=== PATIENT | female | born 1970 | race Caucasian/White ===

== ENCOUNTER 2022-01-01 13:37 | Outpatient (CLI) | payer BC, SELFPAY ==
--- NOTE | 2022-01-01 10:00 | DI.RAD_ITS ---
Exam(s) XR ELBOW LT COMPLETE EXAM: XR ELBOW LT COMPLETE CLINICAL HISTORY: fall, two weeks ago r/o fx M25.522. TECHNIQUE: 2D digital imaging was performed. Three views. COMPARISON: No exams were available for comparison FINDINGS: BONES: Minimally impacted fracture at the radial neck. No separation at the articular surface. No b mireya destructive lesion is seen. JOINTS: The elbow is normally aligned. A small joint effusion is seen. SOFT TISSUE: Normal. IMPRESSION: Nondisplaced radial head fracture. DATA REPOSITORY: RADIATION DOSE DELIVERED:
--- NOTE | 2022-01-01 10:00 | DI.RAD_ITS ---
Exam(s) XR SHOULDER LT COMPLETE 2+V EXAM: XR SHOULDER LT COMPLETE 2+V CLINICAL HISTORY: fall, left shoulder and elbow pain M25.512. TECHNIQUE: 2D digital imaging was performed. Three views. COMPARISON: No exams were available for comparison FINDINGS: BONES: No acute fracture is present. No bony destructive lesion is seen. JOINTS: No dislocation present. SOFT TISSUE: Normal. IMPRESSION: Unremarkable radiographs of the left shoulder. DATA REPOSITORY: RADIATION DOSE DELIVERED:
--- OUTSIDE RECORDS SUMMARY | 2022-01-01 13:44 | XMS_ITS ---
:1970 Author Care Team Providers Name Role Phone JENNIFER MOROCHO Primary Care Provider [phone] Allergies Code Code System Name Reaction Severity Status Onset NKDA ? Notes: pollens, grass, hay Medications Name Status Start Date Stop Date ? ? Advair Diskus 250 mcg-50 mcg/dose powder for inhalation Complete d 10/21/2013 10/21/2013 1 inhalation: daily amoxicillin 500 mg capsule Completed ? 12/07 TAKE 1 CAPSULE BY MOUTH THREE TIMES DAILY UNTIL FINISHED amoxicillin 875 mg tablet Completed 03/23/20102010 1 (one) Tablet: Twice daily amoxicillin 875 mg-potassium clavulanate 125 mg tablet Completed ? 12/07/2020 TAKE 1 TABLET BY MOUTH TWICE DAILY UNTIL FINISHED carvedilol 25 mg tablet Completed 04/28/2015 06/09/20 15 1 (one) Tablet: bid - twice daily cholecalciferol (vitamin D3) 50 mcg (2,000 unit) capsule Complet ed ? 12/05/2021 Take 2 capsules every day by oral route for 90 days. doxycycline hyclate 100 mg Completed ? 11/04 tablet Flovent HFA 110 mcg/actuation aerosol inhaler Active ? Not available Inhale 1 puff twice a day by inhalation route. Flovent HFA 220 mcg/actuation aerosol inhaler Completed 10/16/2013 2-3 puff(s): two times daily fluticasone propionate 50 Completed ? 2020 mcg/actuation nasal spray,suspension lisinopril 5 mg tablet Active ? Not avail able TK 1 T PO D losartan 100 mg tablet Active ? Not avail able Take 1 tablet every day by oral route for 90 days. losartan 25 mg tablet Completed ? 03/21/2021 metoprolol succinate ER 100 mg tablet,extended release 24 hr Act anna ? Not available TAKE 1 TABLET BY MOUTH DAILY metoprolol succinate ER 50 mg Completed ? tablet,extended release 24 hr montelukast 10 mg tablet Completed ? 020 Take 1 tablet every day by oral route for 90 days. ProAir HFA 90 mcg/actuation aerosol inhaler Active ? Not available Inhale 2 puffs every 4 hours by inhalation route as needed. Terazol 3 0.8 % vaginal cream Completed 03/23/2010 1 (one) Cream: vaginally at night Toprol XL 50 mg tablet,extended release Completed ? 12/31/2019 Take 1 tablet every day by oral route. Tudorza Pressair 400 mcg/actuation breath activated Completed 12/16/2012 12/16/2012 1 inhalation: two times daily Problems Name Status Onset Date Source ? Cardiomyopathy Active 03/23/2019 ? Menorrhagia Active 09/12/2020 ? Paresthesia of Lower Extremity Active 08/09/2021 ? Hyperlipidemia Active ? History Obstructive Sleep Apnea Syndrome Active ? History Otitis Media Unknown ? History Otogenic Otalgia Unknown ? History Acute Sinusitis Unknown ? History Allergic Rhinitis Unknown ? History Asthma Active ? 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 History Genuine Stress Incontinence Active ? Hist ory Lack of Energy Active ? History Palpitations Active ? History Heart Murmur Active ? History Cough Unknown ? History Dysuria Unknown ? History Screening for Cardiovascular System Active ? History Disease Specialized Medical Examination Unknown ? History Procedures Date Name Performed by ? 07/19/2006 Tubal Ligation Information not avai lable ? Appendectomy Information not avai lable Notes: 197511/04/2019 MAMMO, Screening, Tomosynthesis, [facility] Radiology (Internal) Bilateral [address] [place] [address] (Work Place) 12/20/2020 US, Pelvis, Transabdominal + [facility] Radiology (Internal) Transvaginal [address] [place] [address] (Work Place) Results Lab Results Date Name Specimen Result Interpretation Description Value Range Status Address ? 03/21/2021 Urinalysis, ? Color Yellow ? ? P _nc Primary Dipstick, Care Reflex Micro [place]: [address] [place], [place] ? ? ? Appearance Clear ? ? P_nc Primary Care [place]: [address], [place] ? ? ? Glucose Normal ? ? P_nc Marla josé miguel Care [place]: [address], [place] ? ? ? Bilirubin Negative ? ? P_nc Primary Care [place]: [address], [place] ? ? ? Ketones Negative ? ? P_nc P rimary Care [place]: [address], [place] ? ? ? Specific 1.030 ? ? P_nc Pr imary [place] Care [place]: [address], [place] ? ? ? Blood Moderate ? ? P_nc Marla josé miguel Care [place]: [address], [place] ? ? ? Ph 5.5 ? ? P_nc Prima ry Care [place]: [address], [place] ? ? ? Protein Negative ? ? P_nc P rimary Care [place]: [address], [place] ? ? ? Urobilinogen 0.2 ? ? P_n c Primary Care [place]: [address], [place] ? ? ? Nitrite negative ? ? P_nc P rimary Care [place]: [address], [place] ? ? ? Leukocyte Negative ? ? P_nc Primary Esterase Care [place]: [address], [place] 11/04/2019 CBC W/ Auto BLD ? Wbc 7.1 10*3/uL 5.0 [facility] Diff -10 Hospital L ab .0 (Internal) : [address], 3/u Abhijit L ? ? BLD ? Rbc 4.71 10*6/uL 4.1 Final [facility] Country 0-5 Hospital L ab .30 (Internal) : [address] 10* [address], 6/u Abhijit L ? ? BLD ? Hgb 13.8 g/dL 12. Final [facility] ountry 0-1 Hospital L ab 6.0 (Internal) : 189 g/[address] ? ? BLD ? Hct 42.9 % 37. Final [facility] try 0-4 Hospital L ab 7.0 (Internal) : 189 % [address] ? ? BLD ? Mcv 91.1 fL 80. Final [facility] ntry 0-9 Hospital L ab 6.0 (Internal) : [address] [place] ? ? BLD ? Mch 29.3 pg 26. Final [facility] ntry 0-3 Hospital L ab 2.0 (Internal) : [address] Abhijit ? ? BLD ? Mchc 32.2 g/dL 31. Final [facility] ountry 0-3 Hospital L ab 5.0 (Internal) : 189 g/d [address], L Abhijit ? ? BLD ? Rdw 12.8 % 11. Final [facility] try 5-1 Hospital L ab 4.5 (Internal) : [address], Abhijit ? ? BLD ? Plt 248 10*3/uL 130 Final [place] -45 Hospital L ab 0 (Internal) : [address], 3/u T[place] L ? ? BLD ? Anc 4.01 10*3/uL ? Final [facility] Hospital L ab (Internal) : [address] [place] ? ? BLD ? Neutro 56.5 % 40. Final [facility] ntry 0-7 Hospital L ab 5.0 (Internal) : [address], [place] ? ? BLD ? Lymph 33.2 % 20. Final [facility] try 0-5 Hospital L ab 0.0 (Internal) : 189 % [address] [place] ? ? BLD ? [place] 7.6 % 2.0 Final [facility] try -10 Hospital L ab .0 (Internal) : [address] % [address] Abhijit ? ? BLD ? Eos 1.7 % 1.0 Final [facility] try -6. Hospital L ab 0 % (Internal) : [address] Abhijit ? ? BLD ? Baso 0.6 % 0.0 Final [facility] try -1. Hospital L ab 0 % (Internal) : [address] Abhijit ? ? BLD ? Ig 0.4 % 0.0 Final [facility] try -0. Hospital L ab 9 % (Internal) : [address] Abhijit 11/04/2019 CMP, Serum or S ? g/r 96 mg/dL 74- Susan l [facility] Plasma 106 Hospital L ab mg/ (Internal) : [address] [place] ? ? S ? Bun 16 mg/dL 7-1 Final [facility] 7 Hospital L ab mg/ (Internal) : [address], [place] ? ? S ? Crea 0.80 mg/dL 0.[address] [facility] 2-1 Hospital L ab .04 (Internal) : 189 mg/ [address], dL [place] ? ? S ? Ca 8.9 mg/dL 8.4 Final [facility] -10 Hospital L ab .2 (Internal) : 189 mg/ [address], dL Ahbijit ? ? S ? Na 138 mmol/L [address] [facility] -14 Hospital L ab 5 (Internal) : [address], l/L [place] ? ? S ? K 4.1 mmol/L 3.[address] [facility] -5. Hospital L ab 1 (Internal) : [address], l/L [place] ? ? S ? Cl 105 mmol/L 98- Final [facility] 107 Hospital L ab mmo (Internal) : 189 l/L [address], [place] ? ? S ? Tco2 24.0 mmol/L 22. Final [facility] 0-3 Hospital L ab 0.0 (Internal) : [address], l/L Abhijit ? ? S ? Tp 6.9 g/dL 6.3 Final [facility] -8. Hospital L ab 2 (Internal) : 189 g/d [address], L [place] ? ? S ? Alb 3.9 g/dL 3.5 [facility] -5. Hospital L ab 0 (Internal) : 189 g/d [address], L [place] ? ? S ? Tbil 0.5 mg/dL 0.2 Final [facility] -1. Hospital L ab 3 (Internal) : 189 mg/ [address], dL [place] ? ? S ? Alp 54 U/L 50- Final [facility] try 136 Hospital L ab U/L (Internal) : [address], Abhijit ? ? S ? Alt (Sgpt) 19 U/L 9-[address] [facility] 2 Hospital L ab U/L (Internal) : [address], [place] ? ? S ? Ast (Sgot) 24 U/L 14- Final [facility] 36 Hospital L ab U/L (Internal) : [address] Abhijit Alegre 11/04/2019 TSH, Serum or S ? Tsh 1.[address] [facility] Plasma u[IU]/mL 7-4 Hospital Lab .68 (Internal) : 189 u[I [address] U]/ Abhijit mL 11/04/2019 ESR BLD ? Esr 0 mm/h 0-[address] [facility] (Erythrocyte 0 Hosp ital Lab Sedimentation mm/ (In ternal): 189 Rate), Blood h Prou ty Abhijit Alegre 11/04/2019 Vitamin D, S ? 25-Hydroxy <4.0 NG/mL ? Final [facility] 25-Hydroxy, D2 Hospi kajal Lab Total, Serum (Int ernal): [address] Abhijit Alegre ? ? S ? 25-Hydroxy 14 NG/mL ? Final [facility] D3 Hospital L ab (Internal) : [address] Abhijit Alegre ? ? S Low 25-Hydroxy D 14 NG/mL ? Final [facility] Country Total Hospital L ab (Internal) : [address] Abhijit Alegre 11/04/2019 Pap Test, MISC ? Hpv see report ? Final [facility] Thinprep, Hospita l Lab Cervical (Interna l): [address] Abhijit Alegre ? ? MISC ? Pap see report ? Final [facility] Hospital L ab (Internal) : [address] Abhijit Alegre ? ? MISC ? Report (see below) ? Final [facility] Hospital L ab (Internal) : [address] Abhijit Alegre ? Venipuncture ? Location Right ? ? P _nc Primary Antecubital Care [place]: [address], [place] ? ? ? Needle 21g ? ? P_nc Prim brynn Vacutainer Care [place]: [address], [place] ? ? ? Number of 1 ? ? P_nc P rimary Attempts Care [place]: [address], [place] ? ? ? Successful Yes ? ? P_nc Primary Care [place]: [address], [place] ? ? ? Dressing Pressure ? ? P_nc Primary Band-aid Care Applied [place]: [address], [place] ? ? ? Initials kk ? ? P_nc Pr imary Care [place]: [address], [place] ? Urinalysis, ? Color Yellow ? ? P_nc Primary Dipstick, Care Reflex Micro [place]: [address], [place] ? ? ? Appearance Clear ? ? P_nc Primary Care [place]: [address], [place] ? ? ? Glucose Normal ? ? P_nc Marla josé miguel Care [place]: [address], [place] ? ? ? Bilirubin Negative ? ? P_nc Primary Care [place]: [address], [place] ? ? ? Ketones Negative ? ? P_nc P rimary Care [place]: [address], [place] ? ? ? Specific 1.030 ? ? P_nc Pr imary [place] Care [place]: [address], [place] ? ? ? Blood Trace ? ? P_nc Prima ry Care [place]: [address], [place] ? ? ? Ph 6.0 ? ? P_nc Prima ry Care [place]: [address], [place] ? ? ? Protein Trace ? ? P_nc Marla josé miguel Care [place]: [address], [place] ? ? ? Urobilinogen 0.2 ? ? P_n c Primary Care [place]: [address], [place] ? ? ? Nitrite negative ? ? P_nc P rimary Care [place]: [address], [place] ? ? ? Leukocyte Negative ? ? P_nc Primary Esterase Care [place]: [address] Past Encounters 12/05/2021 Paresthesia of Lower Extremity; Neuropat hy Jennifer Morocho PA-C: [address] [facility] [place] [address], Ph. 08/09/2021 Paresthesia of Lower Extremity Jennifer Morocho PA-C: [address] [facility] [place] [address], Ph. 03/21/2021 Adult Health Examination; Hypertensive D isorder MARK JuarezC: [address] [place] [address], Ph. 12/20/2020 Menorrhagia Lottie Medina, [facility]: [address] [place] [address], Ph. 09/12/2020 Cardiomyopathy; Menorrhagia MARK JuarezC: [address] [place] [address], Ph. Social History Tobacco Smoking Status Never Smoker Vaccine List Vaccine Type COVID-19, mRNA, LNP-S, PF, 100 mcg/0.5 m L dose (Moderna) 01/02/2021 01/30/2021 influenza, seasonal, injectable, preserv ative free 07/27/2011?0.5 mL rubella Td (adult), adsorbed 11/04/2019 Tdap 08/01/2008 Plan of Care Reminders Provider Appointments None ? ? recorded. Lab None ? ? recorded. Referral None ? ? recorded. Procedures None ? ? recorded. Surgeries None ? ? recorded. Imaging None ? ? recorded. Vitals 08/09/2021 03:00PM Follow Up 20 Weight Blood Pressure 119.01 kg 124/78 mm[Hg] 03/21/2021 08:40AM CPE 40 Weight Blood Pressure 119.41 kg 148/88 mm[Hg] 12/20/2020 01:00PM New Patient 30 Weight Blood Pressure 119.75 kg 144/86 mm[Hg] 09/12/2020 02:40PM Follow Up 40 Weight Blood Pressure 115.21 kg 140/98 mm[Hg] 11/04/2019 09:00AM CPE 40 Weight 112.94 kg 05/04/2019 04:00PM Follow Up 20 Weight Blood Pressure 111.58 kg 120/80 mm[Hg] 03/02/2019 11:00AM Same Day 20 Weight Blood Pressure 112.04 kg 120/80 mm[Hg] 10/21/2013 Height Weight Blood Pressure 172.72 cm 111.58 kg 118/72 mm[Hg] 12/16/2012 Height Weight Blood Pressure 172.72 cm 108.86 kg 120/76 mm[Hg] 10/15/2012 Blood Pressure 124/80 mm[Hg] 10/07/2012 Height Weight Blood Pressure 172.72 cm 108.86 kg 118/84 mm[Hg] 07/15/2012 Weight Blood Pressure 107.5 kg 108/60 mm[Hg] 10/26/2011 Height Weight Blood Pressure 172.72 cm 112.94 kg 132/84 mm[Hg] 10/17/2011 Height Weight Blood Pressure 172.72 cm 112.94 kg 120/60 mm[Hg] 09/18/2011 Height Weight Blood Pressure 170.18 cm 112.49 kg 118/72 mm[Hg] 07/27/2011 Height Weight Blood Pressure 170.18 cm 112.49 kg 118/62 mm[Hg] 06/08/2011 Height Weight Blood Pressure 172.72 cm 111.13 kg 138/80 mm[Hg] 12/01/2010 Weight Blood Pressure 111.81 kg 120/82 mm[Hg] 05/12/2010 Weight Blood Pressure 111.58 kg 118/78 mm[Hg] 03/23/2010 Weight Blood Pressure 113.85 kg 130/80 mm[Hg] 02/23/2010 Weight Blood Pressure 113.85 kg 114/72 mm[Hg] 08/19/2006 Weight Blood Pressure 114.31 kg 122/74 mm[Hg] 07/15/2006 Height Weight Blood Pressure 172.72 cm 113.85 kg 110/70 mm[Hg] 03/21/2006 Height Weight Blood Pressure 172.72 cm 109.77 kg 110/74 mm[Hg] 01/07/2006 Weight Blood Pressure 108.41 kg 106/60 mm[Hg] 10/22/2005 Weight Blood Pressure 109.77 kg 122/78 mm[Hg] 02/27/2005 Height Weight Blood Pressure 172.72 cm 104.33 kg 118/72 mm[Hg] 10/31/2004 Blood Pressure 124/80 mm[Hg]
--- OUTSIDE RECORDS SUMMARY | 2022-01-01 13:44 | XMS_ITS | Encounter Summary ---
:1970 Author Care Team Providers Name Role Phone Jennifer Morocho Primary Care Provider [phone] Reason for Visit Telehealth - Video/Zoom; Bilateral foot/ toe problem Assessment and Plan 1. Paresthesia of lower extremit y 12/05/2021 Uncontrolled. No ottoniel gnosis yet. [place] get [place] [facility] [place] visit. 08/09/2021 New problem. Started in January 22. Patient will get labs and see Neuro at [facility]. Patient has been vaccinated for COVID and doesn't think that she had any symptoms that might be COVID related in Spring 2020. 2. Neuropathy 12/05/2021 Uncontrolled. No ottoniel gnosis yet. We will get the labs from [facility] and have another visit. Discussion Note: None recorded.Patient educational handouts: No information available. Plan of Care Reminders Provider Appointments Cpe 40 03/22/2022 Jennifer Morocho, 9:00AM [facility] Lab None ? ? recorded. Referral None ? ? recorded. Procedures None ? ? recorded. Surgeries None ? ? recorded. Imaging None ? ? recorded. Medications Name Start Date ? ? Flovent HFA 110 mcg/actuation aerosol inhaler ? Inhale 1 puff twice a day by inhalation route. losartan 100 mg tablet ? Take 1 tablet every day by oral route for 90 days. metoprolol succinate ER 100 mg tablet,extended release 24 hr ? TAKE 1 TABLET BY MOUTH DAILY ProAir HFA 90 mcg/actuation aerosol inhaler ? Inhale 2 puffs every 4 hours by inhalation route as n eeded. Medications Administered None recorded. Vitals None recorded. Results Lab Results None recorded. Allergies Code Code System Name Reaction Severity Onset NKDA ? ? ? Notes: pollens, grass, hay Problems Name Status Onset Date Source ? Cardiomyopathy Active 03/23/2019 ? Menorrhagia Active 09/12/2020 ? Paresthesia of Lower Extremity Active 08/09/2021 ? Hyperlipidemia Active ? History Obstructive Sleep Apnea Syndrome Active ? History Asthma Active ? 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 History Genuine Stress Incontinence Active ? Hist ory Lack of Energy Active ? History Palpitations Active ? History Heart Murmur Active ? History Screening for Cardiovascular System Active ? History Disease Procedures Date Name Performed by ? 07/19/2006 Tubal Ligation Information not avai lable ? Appendectomy Information not avai lable Notes: 1973 Vaccine List Vaccine Type COVID-19, mRNA, LNP-S, PF, 100 mcg/0.5 m L dose (Moderna) 01/02/2021 01/30/2021 influenza, seasonal, injectable, preserv ative free 07/27/2011?0.5 mL rubella Td (adult), adsorbed 11/04/2019 Tdap 08/01/2008 Social History Tobacco Smoking Status Never Smoker Do you have smoke and carbon Y monoxide detectors in your home? What is your code status? 0 In the 14 days before symptom N onset, have you had close contact with a person who is under investigation for COVID-19 while that person was ill? What was the date of your most 12/05/2021 recent tobacco screening? Do you use any illicit or N recreational drugs? In the 14 days before symptom N onset, have you had close contact with a laboratory-confirmed COVID-19 while that case was ill? Do you have any pets? N Have you been to an area known N to be high risk for COVID-19? Current Method of Control Natural methods Notes: Tubal Are you passively exposed to N smoke? Do you or have you ever used N any other forms of tobacco or nicotine? What is your level of caffeine Occasional Notes: 1 cup of consumption? coffee daily Have you recently traveled N abroad? Are there any guns present in N your home? 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 Past Encounters 12/05/2021 Paresthesia of Lower Extremity; Neuropat hy Jennifer Morocho PA-C: [address] [place] [phone], Ph. History of Present Illness Note: <div>12/05/21: patient via Zoom for bilateral numbness in the toes and balls of her feet. for 10 months. Patient describes the pain as sudden, sharp, and shooting. The pain is non-radiating only localized in the feet.</div><div>Patient was referred to neurology [place] [facility] [place]. Kaiser Willson for evaluation of bilateral lower extremity paresthesias.</div><div>
</div><div>
</div><div>This visit was performed virtually usingsynchronous audio-visual connection via Zoom. As such, the physical examination is necessarily limited. The risks and benefits of the use of this alternative platform were discussed with the patient and or guardian and verbal consent was obtained. My assessment and plans are based on such examination.Further evaluation, including in-person examination, may be needed depending on the response to management or today's recommendation. </div><div>The patient is {{home* in the office}}. </div><div>The provider is {{home in the office*}}.</div><div>
</div><div>The patient has been positively identified and has consented to a video visit.</div><div>
</div><div>The time spent in counseling and coordination of care was </div><div>
</div> Review of Systems ? Comprehensive General Adult ROS Reported By: Patient Constitutional: Constitutional: no fever, no night sweats, no significant weight gain Eyes: Eyes: wears glasses/contact lenses ENMT: Ears: no difficulty hearing. Nose: no frequent nosebleeds. Mouth/Throat: no sore throat Cardiovascular: Cardiovascular: no chest morenita n, no arm pain on exertion, no shortness of breath when lyi ng down, no palpitations Respiratory: Respiratory: no cough Gastrointestinal: Gastrointestinal: no abdomin al pain, no nausea, no vomiting, no constipation Psychiatric: Psych: depression, anxiety Endocrine: Endocrine: fatigue Physical Exam ? Notes: <div>telehealth Psych: calm and upbeat</div>
== END 2022-01-01 13:57 ==
PROVIDERS: PCP Physician Assistant Medical; Visit Provider Physician Assistant
DX: M25.512 Pain in left shoulder (principal); M25.522 Pain in left elbow; M25.422 Effusion, left elbow; S52.125A Nondisplaced fracture of head of left radius, initial encounter for closed fracture; Z91.81 History of falling
CPT/HCPCS: 73030; 73080

== ENCOUNTER 2022-01-11 10:35 | Outpatient (CLI) | payer BC, SELFPAY ==
--- NOTE | 2022-01-11 08:30 | DI.RAD_ITS ---
Exam(s) XR ELBOW LT COMPLETE EXAM: XR ELBOW LT COMPLETE CLINICAL HISTORY: left elbow injury. TECHNIQUE: 2D digital imaging was performed. COMPARISON: CR XR ELBOW LT COMPLETE from 01/01/2022 FINDINGS: Four views Radial head fracture the lateral aspect radial head again noted. Fracture line still evident. Appea zoltan is stable. No further displacement. Capitellum unremarkable. No large joint effusion. No os seous lesions. IMPRESSION: Stable appearance radial head fracture site DATA REPOSITORY: RADIATION DOSE DELIVERED:
== END 2022-01-11 10:36 | disposition home or self-care (01) ==
LOC: DIORS 10:35
PROVIDERS: PCP Physician Assistant Medical; Referring Provider Physician Assistant Medical; Visit Provider Physician Assistant
DX: S52.125D Nondisplaced fracture of head of left radius, subsequent encounter for closed fracture with routine healing
CPT/HCPCS: 73080

== ENCOUNTER 2022-02-14 10:45 | Outpatient (CLI) | payer BC, SELFPAY ==
--- NOTE | 2022-02-14 10:30 | DI.RAD_ITS ---
Exam(s) XR ELBOW LT LIMITED EXAM: XR ELBOW LT LIMITED CLINICAL HISTORY: left elbow f/u. TECHNIQUE: 2D digital imaging was performed of the left elbow. Two images were obtained. AP and la teral views were obtained. COMPARISON: CR XR ELBOW LT COMPLETE from 01/11/2022 FINDINGS: BONES: There has been continued healing of the radial head fracture. There has been no change in ali gnment of the fracture. No new fractures identified. No bony destructive lesion is seen. JOINTS: The elbow is normally aligned. No joint effusion is seen. SOFT TISSUE: Normal. IMPRESSION: Healing left radial head fracture. DATA REPOSITORY: RADIATION DOSE DELIVERED:
== END 2022-02-14 10:46 | disposition home or self-care (01) ==
LOC: DIORS 10:45
PROVIDERS: PCP Physician Assistant Medical; Referring Provider Physician Assistant Medical; Visit Provider Student in an Organized Health Care Education/Training Program
DX: S52.125D Nondisplaced fracture of head of left radius, subsequent encounter for closed fracture with routine healing (principal); X58.XXXD Exposure to other specified factors, subsequent encounter
CPT/HCPCS: 73070